=== PATIENT | female | born 1940 | race Caucasian/White ===

== ENCOUNTER 2018-03-17 05:05 | Inpatient (IN) ==
[2018-03-12 13:15] LABS: Appearance,Urine HAZY; Bacteria,Urine 0 /hpf (0); Bilirubin,Urine NEG (NEG); Color,Urine YELLOW; Glucose,Urine (UA) NEGATIVE (NEG); Leukocyte Esterase,Urine 75 /uL (NEG); Mucus,Urine MOD /hpf (0); Protein,Urine NEG (NEG); Specific Gravity,Urine 1.017 (1.000-1.035); Urine Blood NEG mg/dL (<0.03); Urine RBC 0 /hpf (0-1); Urine Squamous Epithelial Cell 1 /hpf (0-4); Urine WBC 3 /hpf (0-4); Urobilinogen,Urine NEG (NEG)
[2018-03-12 14:12] LABS: Basophils # (Auto) 0 K/mcL (0.0-0.3); Basophils % (Auto) 0.6 % (0.0-2.0); Eosinophils # (Auto) 0.1 K/mcL (0.0-0.7); Eosinophils % (Auto) 1.4 % (0.0-7.0); Granulocytes % (Auto) 63.5 % (38.0-78.0); Lymphocytes # (Auto) 1.5 K/mcL (1.5-4.8); Lymphocytes % (Auto) 25.8 % (15.5-49.0); Mean Cell Volume 94.3 fL (80.0-100.0); Mean Corpuscular HGB Conc 33.8 g/dL (31.0-36.0); Monocytes # (Auto) 0.5 K/mcL (0.1-0.9); Monocytes % (Auto) 8.7 % (1.0-12.0); Platelet Count 194 K/mcL (140-440); RBC 4.04 M/mcL (4.00-5.20); Red Cell Distribution Width 12.8 % (11.5-14.5)
[2018-03-12 14:21] LABS: Blood Urea Nitrogen 14 mg/dl (8-23)
[2018-03-17] MEDS ORDERED: 0.9 % SODIUM CHLORIDE 9 ML, KETOROLAC 30 MG, ROPIVACAINE HCL/PF 49.5 ML, EPINEPHrine 0.... IJ SCH (07:00)
[2018-03-17] MEDS ORDERED: ceFAZolin 1 GM VIAL IV SCH (07:00)
[2018-03-17] MEDS ORDERED: oxyCODONE 10 MG TAB.ER.12H PO SCH (07:00)
[2018-03-17] MEDS ORDERED: PREGABALIN 75 MG CAPSULE PO SCH (07:00)
[2018-03-17] MEDS ORDERED: CELECOXIB 200 MG CAPSULE PO SCH (07:00)
[2018-03-17] MEDS ORDERED: ONDANSETRON 4 MG/2 ML VIAL IV ONE (07:30)
[2018-03-17] MEDS ORDERED: ROPIVACAINE HCL/PF 20 ML VIAL IJ ONE (07:30)
[2018-03-17] MEDS ORDERED: LIDOCAINE HCL/PF 100 MG/5 ML SYRINGE IV ONE (07:30)
[2018-03-17] MEDS ORDERED: TRANEXAMIC ACID 1,000 MG/10 ML VIAL IV ONE ×2 (07:30→09:01)
[2018-03-17] MEDS ORDERED: PROPOFOL 200 MG/20 ML VIAL IV ONE (07:30)
[2018-03-17] MEDS ORDERED: PHENYLEPHRINE 10 MG/ML VIAL IV ONE (07:30)
[2018-03-17] MEDS ORDERED: GLYCOPYRROLATE 0.2 MG/ML VIAL IV ONE (07:30)
[2018-03-17] MEDS ORDERED: DEXAMETHASONE 10 MG/ML VIAL IV ONE (07:30)
[2018-03-17] MEDS ORDERED: KETAMINE 100 MG/ML ML IV ONE (07:30)
[2018-03-17] MEDS ORDERED: MIDAZOLAM 2 MG/2 ML VIAL IV ONE (07:30)
[2018-03-17] MEDS ORDERED: GENTAMICIN SULFATE 800 MG/20 ML VIAL IR ONE (07:53)
[2018-03-17] MEDS ORDERED: ACETAMINOPHEN 1,000 MG/100 ML BOTTLE IV ONE (08:51)
[2018-03-17] MEDS ORDERED: MEPERIDINE 25 MG/ML SYRINGE IV PRN (08:51)
[2018-03-17] MEDS ORDERED: NALOXONE HCL 0.4 MG/ML VIAL IV PRN (08:51)
[2018-03-17] MEDS ORDERED: METHOCARBAMOL 1,000 MG/10 ML VIAL IV PRN (08:51)
[2018-03-17] MEDS ORDERED: BENZOCAINE/MENTHOL 1 LOZENGE PO PRN ×2 (08:51→09:01)
[2018-03-17] MEDS ORDERED: fentaNYL 100 MCG/2 ML VIAL IV PRN (08:51)
[2018-03-17] MEDS ORDERED: ONDANSETRON 4 MG/2 ML VIAL IV PRN ×2 (08:51→09:01)
[2018-03-17] MEDS ORDERED: METOPROLOL TARTRATE 5 MG/5 ML VIAL IV PRN (08:51)
[2018-03-17] MEDS ORDERED: FLUMAZENIL 0.1 MG/ML ML IV PRN (08:51)
[2018-03-17] MEDS ORDERED: IPRATROPIUM/ALBUTEROL 3 ML AMPUL.NEB NEB PRN (08:51)
[2018-03-17] MEDS ORDERED: LACTATED RINGERS 250 ML IV PRN (08:51)
[2018-03-17] MEDS ORDERED: LACTATED RINGERS 1,000 ML IV SCH (09:00)
--- NOTE | 2018-03-17 09:00 | Brief Operative Note ---
Pre-op diagnosis: left knee osteoarthritis Post-op diagnosis: same Procedure: left total knee arthroplasty Grafts/Implants: Yes Anesthesia: GETA Complications: none Surgeon: Charly Sargent Inspector Health Care Facilities: Destiney Cardenas Estimated blood loss (cc): 100 Tourniquet Time (Minutes): 54 Specimens Removed/Pathology: none sent Condition: stable Disposition: PACU
[2018-03-17] MEDS ORDERED: HYDROcodone/APAP 10/325MG TABLET PO PRN (09:01)
[2018-03-17] MEDS ORDERED: FLEETS ADULT ENEMA PR PRN (09:01)
[2018-03-17] MEDS ORDERED: MAGNESIUM HYDROXIDE 30 ML ORAL.SUSP PO PRN (09:01)
[2018-03-17] MEDS ORDERED: ONDANSETRON 4 MG ODT TABLET SL PRN (09:01)
[2018-03-17] MEDS ORDERED: POLYETHYLENE GLYCOL 3350 17 GM PACKET PO PRN (09:01)
[2018-03-17] MEDS ORDERED: BISACODYL 10 MG SUPP.RECT PR PRN (09:01)
--- NOTE | 2018-03-17 09:39 | Operative Note ---
DATE OF OPERATION: 03/17/2018 PREOPERATIVE DIAGNOSIS: Degenerative joint disease, left knee. POSTOPERATIVE DIAGNOSIS: Degenerative joint disease, left knee. PROCEDURE PERFORMED: Left total knee arthroplasty. SURGEON: Rosa Maria Sargent M.D. BIOMEDICAL REPAIR TECHNICIAN SURGEON: Destiney Cardenas PA-C. ANESTHESIA: Spinal with LMA assist. ESTIMATED BLOOD LOSS: 150 mL. COMPLICATIONS: None noted. SPECIMENS REMOVED: None. DRAINS: None. TOURNIQUET TIME: 54 minutes at 300 mmHg. IMPLANTS: DePuy CMW2 bone cement 20 grams x 4; DePuy Attune tibial insert fixed bearing posterior stabilized size 7, 6 mm AOX; DePuy Attune patella medialized dome 38 mm cemented AOX; DePuy Attune femoral posterior stabilized size 7 left, cemented; DePuy Attune tibial base fixed bearing size 6, cemented. INDICATIONS: The patient has had a long-standing history of worsening pain in the knee that has failed conservative treatment. Radiographs have confirmed advanced degenerative joint disease. After a long discussion about treatment options, the patient elected to proceed with a knee arthroplasty. The risks and benefits were discussed with the patient in detail including, but not limited to, the risks of anesthesia, problems with the heart or lungs related to anesthesia, infection, compromise or injury to the nerves and blood vessels, deep venous thrombosis, pulmonary embolism, pneumonia, continued pain after surgery, worsening pain or symptoms after surgery, swelling, loss of motion, instability, leg length discrepancy, and need for repeat surgery. DESCRIPTION OF PROCEDURE: The patient was seen in the pre-anesthesia waiting room where all questions were answered and the correct side and site were identified and marked. The patient was transferred to the operating room and administered the anesthetic and given pre-operative antibiotics. A time-out was then called. The extremity was prepped and draped, exsanguinated, and the tourniquet was inflated to 300 mmHg. A midline skin incision was then made with a standard medial parapatellar arthrotomy. Debridement of the menisci, ACL, and PCL was performed followed by balancing releases in the medial lateral plane. We then established intramedullary access to both the femur and tibia in a standard fashion. The femoral guide lizette was initially placed with the distal femoral guide, pinned into place, and the distal femoral cut was performed and checked with a flat plate. We then turned our attention to the tibia. The intramedullary guide was placed with the proximal tibial cutting block. The block was appropriately positioned off the affected side, varus and valgus was checked with the extra-medullary guide, and the block was pinned into place. The proximal tibial cut was performed and the tibia was prepared for the tibial implant with appropriate rotation. The tibia, femur, and posterior compartment were debrided of osteophytes, loose bodies, and meniscal fragments We then used the gap balancing technique to balance extension with the first two cuts and good balancing was obtained with a 10 millimeter gap block. We turned our attention back to the femur and used the referencing block and implant to size appropriately. Using the gap balancing technique for the flexion space we set our rotation of the femur off the tibial cut. Anesthesia gave the patient 1 gram of Tranexamic Acid via an intravenous route. We placed the 4 in 1 cutting block and made anterior, posterior, and chamfer cuts. Box plasty cuts were then made in a standard fashion for the posterior stabilized prosthesis. We then completed osteophyte release and posterior capsule release from the posterior compartment. Trials were placed and we chose the polyethylene insert thickness that provided the best stability in all planes. With the trials in place, we did a measured resection for a resurfacing patella. We sized the patella and placed the patella trial and performed a lateral facetectomy with the saw and rongeur. Good tracking was obtained. We removed all trials, irrigated and dried all cut surfaces. We cemented the components into place including tibia, femur and patella. We placed a trial liner and held the knee in full extension with the patella compressed while the cement cured. We then removed all excess cement and placed the final polyethylene tibiofemoral component. Irrigation with 3 liters of antibiotic saline was then performed using jet-lavage. We let the tourniquet down and coagulated bleeding vessels. We injected a 100 cubic centimeter volume including Ropivacaine 49.25 cubic centimeters at 5 milligrams per cubic centimeter, Ketorolac 30 milligrams, and Epinephrine 0.5 milligrams into 100 cubic centimeters volume of normal saline. We closed the retinaculum with #2 Stratafix and 0 Vicryl. We closed the subcutaneous tissue and skin in layers out to Dermabond on the skin. A sterile pressure dressing was applied. All needle and sponge counts were correct. The patient was transferred to the recovery room in stable condition. OSWALD:radha Job ID: [id number] Doc ID: [id number] Rosa Maria Sargent MD
--- NOTE | 2018-03-17 10:38 | XRay Report ---
CLINICAL INFORMATION: Post-Op Total Knee COMPARISON: None. FINDINGS: Total knee prosthesis is anatomically aligned. No osseous abnormalities. Periarticular gas and soft tissue swelling is seen in the expected IMPRESSION: Negative Interpreted and Authenticated by: Charly Frausto 03/17/18
[2018-03-17] MEDS: METOPROLOL SUCCINATE 25 MG TAB.XL.24H PO SCH (11:53)
[2018-03-17] MEDS: KETOROLAC 15 MG/ML VIAL IV SCH ×3 (11:54→23:58)
[2018-03-17] MEDS: 0.9 % SODIUM CHLORIDE 1,000 ML IV SCH ×2 (11:55→18:06)
[2018-03-17] MEDS: 0.9 % SODIUM CHLORIDE 10 ML SYRINGE IV SCH ×2 (15:40→21:22)
[2018-03-17] MEDS: ceFAZolin 1 GM VIAL IV SCH ×2 (15:49→23:58)
[2018-03-17] MEDS: LOSARTAN 50 MG TABLET PO SCH (20:28)
[2018-03-17] MEDS: ATORVASTATIN 20 MG TABLET PO SCH (20:28)
[2018-03-17] MEDS: SENNOSIDES 1 TABLET PO SCH (20:29)
[2018-03-17] MEDS: DOCUSATE SODIUM 100 MG CAPSULE PO SCH (20:29)
[2018-03-17] MEDS: METHOCARBAMOL 750 MG TABLET PO PRN (20:30)
[2018-03-18] MEDS: 0.9 % SODIUM CHLORIDE 1,000 ML IV SCH ×3 (00:51→22:43)
[2018-03-18] MEDS: METHOCARBAMOL 750 MG TABLET PO PRN (05:25)
[2018-03-18] MEDS: 0.9 % SODIUM CHLORIDE 10 ML SYRINGE IV SCH ×2 (05:38→14:23)
[2018-03-18] MEDS: KETOROLAC 15 MG/ML VIAL IV SCH ×2 (05:38→12:04)
[2018-03-18] MEDS: APIXABAN 5 MG TABLET PO SCH ×2 (10:07→20:58)
[2018-03-18] MEDS: METOPROLOL SUCCINATE 25 MG TAB.XL.24H PO SCH (10:07)
[2018-03-18] MEDS: DOCUSATE SODIUM 100 MG CAPSULE PO SCH ×2 (10:07→20:58)
[2018-03-18] MEDS: traMADol 50 MG TABLET PO PRN ×2 (10:08→14:23)
[2018-03-18] MEDS: amLODIPine 5 MG TABLET PO SCH (10:08)
[2018-03-18] MEDS: LOSARTAN 50 MG TABLET PO SCH ×2 (10:09→20:58)
[2018-03-18] MEDS: KETOROLAC 30 MG/ML VIAL IV SCH (17:51)
[2018-03-18] MEDS: SENNOSIDES 1 TABLET PO SCH (20:58)
[2018-03-18] MEDS: ATORVASTATIN 20 MG TABLET PO SCH (20:58)
[2018-03-19] MEDS: KETOROLAC 30 MG/ML VIAL IV SCH ×2 (00:31→05:17)
[2018-03-19] MEDS: 0.9 % SODIUM CHLORIDE 10 ML SYRINGE IV SCH ×2 (00:34→05:17)
--- NOTE | 2018-03-19 05:53 | Orthopedic Progress Note ---
Subjective Patient information: Note initiated : 03/19/18 at 5:51 am Service Date, if different from initiated Date: [] Patient: Gisela Roman 78 y/o F admitted on 03/17/18 for Left total Knee Arthroplasty. Chief Complaint: [] Interval history: doing well. pain improving Objective Vital signs: Vital Signs Temp Pulse Resp BP Pulse Ox 03/19/18 04:00 98.5 F 67 14 129/64 93 03/19/18 00:20 99.6 F H 74 14 110/58 93 03/18/18 19:25 98.9 F 72 16 110/59 91 03/18/18 17:47 96.8 F L 75 20 97/49 94 03/18/18 13:45 97.7 F 65 20 123/60 93 03/18/18 13:02 63 03/18/18 09:00 66 03/18/18 07:00 62 18 97 03/18/18 06:35 97.8 F 62 20 103/57 97 Intake and Output 03/18/18 03/18/18 03/19/18 13:59 21:59 05:59 Intake Total 200 / 320 120 / 320 Output Total 150 / 1000 650 / 1000 200 / 1000 Balance -150 / -680 -450 / -680 -80 / -680 Intake: Oral 200 / 320 120 / 320 Output: Void Amount 150 / 1000 650 / 1000 200 / 1000 Other: Meal Lunch Percent of Meal Consumed 75% Feeding Ability Independent Urine Appearance Clear Clear Clear Urine Color Dark Yellow Bright Yellow Pale Urine Odor Strong Normal # Voids 1 1 Weight 169 lb 8 oz Patient Weight 03/19/18 05:59 Weight 169 lb 8 oz Intake & Output: Intake & Output 03/18/18 03/18/18 03/19/18 13:59 21:59 05:59 Intake Total 200 / 320 120 / 320 Output Total 150 / 1000 650 / 1000 200 / 1000 Balance -150 / -680 -450 / -680 -80 / -680 Weight 169 lb 8 oz Intake: Oral 200 / 320 120 / 320 Output: Void Amount 150 / 1000 650 / 1000 200 / 1000 Other: Meal Lunch Percent of Meal Consumed 75% Feeding Ability Independent Urine Appearance Clear Clear Clear Urine Color Dark Yellow Bright Yellow Pale Urine Odor Strong Normal # Voids 1 1 Incision: Yes healing Incision clean and dry: Yes Dressing: Yes clean, Yes dry, Yes intact Weight bearing status: full Neurological exam IM: Yes abnormal gait, Yes alert, Yes oriented X3, Yes motor sensory intact, Yes neurovascular intact Extremities exam IM: No calf tenderness, Yes Foot pink and warm, Yes neurovascular intact - Labs CBC & BMP: 03/18/18 04:52 03/12/18 11:06 Labs: Orthopedic Labs 03/12/18 11:06 PT 13.2 INR 1.0 03/19/18 03/18/18 03/12/18 05:01 04:52 11:06 Hgb Pending 10.2 L 12.9 Hct Pending 31.6 L 38.1 Assessment and Plan (1) Osteoarthritis, knee pod 2 s/p tka wbat pain control dvt prophylaxis dc planning Status: Acute
--- NOTE | 2018-03-19 05:55 | Discharge Summary ---
Ortho Discharge - TKA - Patient Instructions Diet: Regular Diet Activity: activity as tolerated Total Knee Protocol: For Total Knee: Start ROM BRYCE with stationary bike or rocking chair. Work on gaining full extension of knee. Posterior dislocation precautions provided. Hip abductor strengthening and gait training instructions provided. Apply Cryocuff as instructed. Dressing Care: May shower in 2 days Patient Education: Hydrocodone/Acetaminophen (By mouth), Aspirin (By mouth), Methocarbamol (By mouth), Total Knee Replacement (DC) Additional Instructions: Discharge Instructions: Do the exercises at home that physical therapy gave you throughout the day. Weight bearing as tolerated. Wear comfortable clothing for physical therapy. You are scheduled for physical therapy at [facility] ([phone]) on at 10:15 am, please arrive 15 minutes early for paperwork. Take your prescription, photo ID, insurance cards, and current medication list with you to your first physical therapy appointment. Take your prescription to car pick up driver any medication. You have Dermabond (a dressing with a mesh-like appearance), DO NOT remove mesh. Cover site daily with gauze dressing. You may start showering on post op day #2. The Dermabond dressing can get wet, do not scrub dressing. Pat dry, then place new dressing (above). To avoid constipation while taking any narcotic pain medication, take an over the counter stool softener/laxative. Use your Cryocuff or ice packs as directed, on for 20 minutes at a time throughout the day. This and elevation will help with pain and swelling. Call your physician for fevers above 100.5 or pain not controlled by medication. Your prescriptions are with your discharge information. Some medications were electronically transmitted to your pharmacy of choice. Take Aspirin twice daily, for 30 days, as prescribed to prevent blood clots (see medication list). - Problem Maintenance (1) Osteoarthritis, knee Status: Acute - Follow Up Plan Follow Up Appointments: Destiney Cardenas PA-C [Physician Rivet Sorter] - 04/01/18 8:40 am Disposition: Home, Self-Care Prognosis: Good Rehab Potential: Good I certify that the patient requires SNF services: Yes Overall status at discharge: patient is progressing back to baseline - Orders For Discharge Prescriptions: Aspirin [Ecotrin] 325 mg PO BID #60 tab.ec HYDROcodone/APAP 10/325MG [Lupton 10-325Mg] 1 - 2 tab PO Q4H PRN #60 tab PRN Reason: Pain Methocarbamol [Robaxin] 750 mg PO QIDP PRN #30 tab PRN Reason: Spasms Additional Discharge Orders: Physical Therapy at Discharge - TKA Location: None Selected Toilet Riser Discharge Order Location: None Selected Walker Location: None Selected
[2018-03-19] MEDS: METOPROLOL SUCCINATE 25 MG TAB.XL.24H PO SCH (08:30)
[2018-03-19] MEDS: amLODIPine 5 MG TABLET PO SCH (08:30)
[2018-03-19] MEDS: LOSARTAN 50 MG TABLET PO SCH (08:30)
[2018-03-19] MEDS: DOCUSATE SODIUM 100 MG CAPSULE PO SCH (08:30)
[2018-03-19] MEDS: APIXABAN 5 MG TABLET PO SCH (08:30)
== END 2018-03-19 12:30 | disposition home or self-care (01) | DRG 470 ==
LOC: MEDSUR 05:05
PROVIDERS: ADMIT Orthopaedic Surgery Sports Medicine; ATTEND Orthopaedic Surgery Sports Medicine